=== PATIENT | female | born 1975 ===

== ENCOUNTER 2025-07-05 21:41 | Emergency (ER) | payer SELFPAY ==
[2025-07-05 21:43] VITALS: BP 198/85; PULSE 87; RESP 18; TEMP 36.7; O2SAT 100
--- NOTE | 2025-07-05 22:22 | PC.NURSE ---
patient attempted to go outside to lay down because she was overheated patient laid down on floor of ER tunnel. assisted patient back into wheelchair and informed that she cannot lay on floor of ER. patient understood.
--- NOTE | 2025-07-05 22:35 | PC.NURSE ---
Notified online health and fitness coach that patient was leaving at this time. alert and oriented x4.
== END 2025-07-05 22:57 | disposition left against medical advice (07) ==
LOC: ANHED 22:52
DX: R10.10 Upper abdominal pain, unspecified (principal)
CPT/HCPCS: 99199